=== PATIENT | male | born 1955 | race Caucasian/White ===

== ENCOUNTER 2019-03-23 17:13 | Inpatient (IN) | payer OTHER ==
[~2019-03-23] VITALS: Ht 165.1 cm; Wt 98.5 kg
[2019-03-23 17:13] VITALS: BP 107/63
[~2019-03-23 17:13] MED LIST: PREDNISONE20 MG PO
[2019-03-23 17:41] LABS: BASO % 0.4 % (0.0-1.0); EOS % 0.3 % (1.0-4.0); HEMATOCRIT 55.6 % (42.0-52.0); HEMOGLOBIN 17.9 g/dl (14.0-18.0); MEAN CELL VOLUME 90.8 fl (80.0-94.0); MEAN CORPUSCULAR HGB 29.2 pg (27.0-31.0); MEAN CORPUSCULAR HGB CONC 32.2 g/dl (33.0-37.0); MONO # 0.9 10*3/uL (0.1-1.0); MONO % 11.3 % (3.0-9.0); NEUT % 75.5 % (47.0-73.0); PLATELET COUNT AUTOMATED 217 10*3/uL (130-400); RED BLOOD COUNT 6.12 10*6/uL (4.50-5.90); RED CELL DISTRI WIDTH 18.5 % (0-14.5); WHITE BLOOD COUNT 7.9 10*3/uL (4.8-10.8)
[2019-03-23 17:54] LABS: ACT PARTIAL THROMBO TIME 30.1 SECONDS (20.0-32.1); ALBUMIN 3.1 gm/dl (3.1-4.5); CREATININE 1.85 mg/dL (0.70-1.30); INTERNATIONAL NORM RATIO 1.9 (2.0-3.5); POTASSIUM 4.4 mmol/L (3.5-5.1); TOTAL PROTEIN 6.8 gm/dL (6.4-8.2)
[2019-03-23 18:03] LABS: ABG BASE EXCESS 0.2 mmol/L (-2.0-2.0); ABG HCO3 24.2 mmol/l (22-26); ABG O2 SATURATION 98.6 % (95-97); ARTERIAL BLOOD GAS PCO2 38.5 mmHg (35-45); ARTERIAL BLOOD GAS PH 7.413 (7.35-7.45)
[2019-03-23 18:07] LABS: TROPONIN I 0.607 ng/ml (<0.045)
--- NOTE | 2019-03-23 18:07 | NUR ---
CRITICAL TROP OF 0.607. DOC MADE AWARE.
--- NOTE | 2019-03-23 18:26 | NUR ---
LASIX DOSE NOW ADMINISTERED. PT HAD REQUESTED A BRODERICK CATH INSERTION BUT THE FOESKIN REMNANTS ARE SEVERELY SWOLLEN AND ACTUALLY VERY STIFF AND I AM UNABLE TO OBSERVE THE MEATUS WHATSOEVER. TWO ATTEMPTS TO CATHERIZE PT WERE UNSUCCESSFUL, URINAL AND CALLBELL PROVIDED.
[2019-03-23 18:32] VITALS: BP 120/88
--- NOTE | 2019-03-23 18:56 | NUR ---
17:00 PT ARRIVED TO [facility] VIA AMBULANCE ON PORTABLE CPAP. PT PLACED ON BIPAP OF 20/6 AND 40% SPO2 98%. RR 25-30 WITH VST OF 530 TO 730. PT STATED HE FEELS BETTER. HR 107. ALARMS SET AND FUNCTIONAL WITHIN NORMAL PARAMETERS FOR PATIENT. RESPS REGULAR AND UNLABORED. ABG DRAWN VIA RR WITH ASSISTANCE OF ULTRASOUND.
--- NOTE | 2019-03-23 19:10 | NUR ---
NURSE REPORT GIVEN TO AUDIT DIRECTOR RN
--- NOTE | 2019-03-23 19:35 | NUR ---
A 64, admitted to , under the services of ERIN Meza DO with a diagnosis of CHF. Chief complaint is EDEMA. Patient arrived via stretcher from ER. Monitor applied. Initial assessment completed. Vital signs taken and recorded. ERIN MEZA DO notified of admission to the unit. Orders received. See assessment for past medical history, medications and allergies. Patient and/or family oriented to unit. [facility] visitation policy reviewed. Clothing/patient valuable form completed. RUDDY MONTAÑO
--- NOTE | 2019-03-23 19:44 | NUR ---
PATIENT REFUSING BIPAP. 4L NC INTACT. 95%. RESPIRATIONS DEEP AND STEADY. WILL MONITOR
--- NOTE | 2019-03-23 19:50 | NUR ---
PATIENT STATES HE IS SUPPOSE TO TAKE MEDICATIONS BUT HE DOES NOT. STATES HE HAS NOT FILLED ANY OF HIS CARDIAC MEDICATIONS IN OVER A YEAR. NO MEDICATIONS AVAILABLE TO LOOK AT ON MED CLAIMS HISTORY
[2019-03-23 20:00] VITALS: BP 160/90
--- NOTE | 2019-03-23 20:01 | NUR ---
DR WILDE AWARE OF CRITICAL TROPONIN. ALSO MADE AWARE OF SEEPING WOUNDS, AND PATIENT REFUSING BIPAP.
--- NOTE | 2019-03-23 20:03 | NUR ---
PATIENT MISSED URINATING IN THE URINAL. BED CHANGE AT THIS TIME.
--- NOTE | 2019-03-23 20:43 | NUR ---
DR NEAL'S ANSWERING SERVICE AWARE OF CONSULT
--- NOTE | 2019-03-23 20:48 | NUR ---
DR VILLAVICENCIO CALLED BACK AND AWARE OF CONSULT. MULTIPLE ORDERS TAKEN. STATES HE WILL SEE THE PATIENT TOMORROW
--- NOTE | 2019-03-23 21:18 | NUR ---
MEDICATED WITH PRN TRAZADONE FOR SLEEPLESSNESS AND ATIVAN FOR ANXIOUSNESS AND FINE TREMORS, WILL MONITOR
--- NOTE | 2019-03-23 21:25 | NUR ---
DR WILDE DC'D CONSULT FOR DR NEAL. DR MARTÍNEZ CALLED WITH NEW CONSULT. HE STATES TO ORDER LASIX BID AND DR MAIER WILL SEE HIM IN THE MORNING. STATES PATIENT DOES NOT NEED THE ECHO FOR IN THE MORNING.
--- NOTE | 2019-03-23 21:32 | NUR ---
SPOKE WITH DR WILDE REGARDING MEDICATIONS THAT DR VILLAVICENCIO ORDERED. DR STATED TO GIVE THE HYDROCHLOROTHIAZIDE BUT NOT THE ISORDIL. ALSO STATES TO LET HIM KNOW IF PATIENT DESATS SO HE CAN TRANSFER PATIENT TO THE ICU.
--- NOTE | 2019-03-23 23:55 | NUR ---
DR WILDE MADE AWARE OF CRITICAL TROPONIN. BIPAP INTACT.SETTINGS 18/02. PATIENT TACHYPNEIC, UNABLE TO SPEAK FULL SENTENCES DUE TO DYSPNEA. DR WILDE MADE AWARE AND STATES "I MAY COME UP TO SEE THE PATIENT". BED IN LOW POSITION, CALL LIGHT IN REACH
[2019-03-24] VITALS: BP 106/59
--- NOTE | 2019-03-24 02:33 | NUR ---
PATIENT FOUND SITTING ON TOILET WITH NO MONITOR OR OXYGEN ON. STATES HE DOES NOT REMEMBER WALKING TO THE RESTROOM. OXYGEN 92% ON ROOM AIR. TACHYPNIA AND AUDIBLE WHEEZES NOTED. ASSISTED BACK TO BED VIA WHEELCHAIR. PATIENT UNABLE TO AMBULATE AT THIS TIME. BIPAP AND MONITOR PLACED BACK ON PATIENT. HEART RATE 115 PER MONITOR, 02 95% ON BIPAP. PATIENT STATES HE IS BREATHING BETTER. RESPIRATIONS 18 BEFORE RN LEFT ROOM. BED ALARM, CALL LIGHT IN REACH, BED IN LOW POSITION
--- NOTE | 2019-03-24 03:42 | NUR ---
2 ATTEMPTS MADE TO CATHETERIZE PATIENT. UNABLE TO DO SO DUE TO EDEMA IN PENIS. PATIENT'S FACE IS CLAUDIO IN COLOR. BIPAP REMAINS INTACT. DR WILDE MADE AWARE. STATES HE WILL TRANSFER PATIENT TO THE ICU AND POSSIBLE TRANSFER OUT IN THE AM FOR UROLOGY.
[2019-03-24 04:00] VITALS: BP 122/89
--- NOTE | 2019-03-24 04:15 | NUR ---
PT. RECEIVED FROM . SOB NOTED. HEP LOCK IN AMAURI ASYMPT. LUNGS DIMINISHED WITH RHONCHI AND WHEEZES BILAT, PULSE OX 98% ON 6L NC DURING TRANSFER. BIPAP PLACED ON PT 14, 40%. ABDOMEN FIRM, DISTENDED AND OBESE, GENERALIZED ANASARCA NOTED. ARMS SEEPING. ABD AND LEGS REDDENED AND SEEPY.
--- NOTE | 2019-03-24 04:38 | NUR ---
ATTEMPTS BY 2 RN'S TO INSERT BRODERICK CATHETER AND COUDE CATHETER UNSUCCESSFUL. PT. TOLERATED WELL. PENIS AND SCROTUM EXTREMELY SWOLLEN. MARIANA SUE RN
[2019-03-24 05:32] LABS: ALBUMIN 2.4 gm/dl (3.1-4.5); CREATININE 1.65 mg/dL (0.70-1.30); PHOSPHOROUS 4.1 mg/dL (2.5-4.9); POTASSIUM 4.2 mmol/L (3.5-5.1); TOTAL PROTEIN 5.2 gm/dL (6.4-8.2)
[2019-03-24 05:55] LABS: BASO % 0.2 % (0.0-1.0); EOS % 0.4 % (1.0-4.0); HEMATOCRIT 47.3 % (42.0-52.0); HEMOGLOBIN 15.6 g/dl (14.0-18.0); LYMPH # 0.9 10*3/uL (1.3-4.4); LYMPH % 10.9 % (27.0-41.0); MEAN CELL VOLUME 90.6 fl (80.0-94.0); MEAN CORPUSCULAR HGB 29.9 pg (27.0-31.0); MONO % 12.1 % (3.0-9.0); NEUT # 6.1 10*3/uL (2.3-7.9); PLATELET COUNT AUTOMATED 166 10*3/uL (130-400); RED BLOOD COUNT 5.22 10*6/uL (4.50-5.90); RED CELL DISTRI WIDTH 17.5 % (0-14.5); WHITE BLOOD COUNT 8.1 10*3/uL (4.8-10.8)
--- NOTE | 2019-03-24 07:45 | NUR ---
PATIENT TAKEN OFF OF BI-PAP, PLACED ON 4 L/M NASAL CANNULA.
[2019-03-24 08:00] VITALS: BP 118/92
--- NOTE | 2019-03-24 08:21 | NUR ---
Patient admitted to room 501-1 on 03/23/19 and transferred to [facility]U 03/24/19. When patient is medically stable, if needed, please reorder occupational therapy. Thank you. Marietta Ribeiro OTR/l
--- NOTE | 2019-03-24 08:52 | NUR ---
ÁNGEL ADEN,MILA Najera [id number] Please refer to the physician's history and physical for past medical history, comorbid conditions, and allergies. Diagnosis: CHF Shakir Score: 12,HIGH RISK WOUND DESCRIPTIONS: Wound Number: 1 Location of the wound: right wrist Thickness: Partial Size: 0.5cm x 2.5cm x 0.1cm Tunneling: none Undermining: none Sinus Tract: none Presence of Exudate: Serous Amount: Heavy Color: Red, purple Odor: None Periwound Skin Appearance: Edema, cool Wound edges: approximated Pain (associated with wound): none at time of assessment How does patient state this happened? pt unable to state how this happened Wound Number: 2 Location of the wound: right forearm distal Thickness: Full Size: 1.0cm x 1.2cm x 0.1cm Tunneling: none Undermining: none Sinus Tract: none Presence of Exudate: Serous Amount: Heavy Color: Red, yellow Odor: None Periwound Skin Appearance: Edema, cool Wound edges: approximated Pain (associated with wound): none at time of assessment How does patient state this happened? pt unable to state how this happened Wound Number: 3 Location of the wound: right forearm medial Thickness: Full Size: 1.5cm x 1.5cm x 0.1cm Tunneling: none Undermining: none Sinus Tract: none Presence of Exudate: Serous Amount: Heavy Color: Red, yellow Odor: None Periwound Skin Appearance: Edema, cool Wound edges: approximated Pain (associated with wound): none at time of assessment How does patient state this happened? pt unable to state how this happened Wound Number: 4 Location of the wound: right forearm proximal Thickness: Full Size: 1.2cm x 0.9cm x 0.1cm Tunneling: none Undermining: none Sinus Tract: none Presence of Exudate: Serous Amount: Heavy Color: Red, yellow Odor: None Periwound Skin Appearance: Edema, cool Wound edges: approximated Pain (associated with wound): none at time of assessment How does patient state this happened? pt unable to state how this happened Wound Number: 5 Location of the wound: left wrist Thickness: Full Size: 0.5cm x 0.5cm x 0.1cm Tunneling: none Undermining: none Sinus Tract: none Presence of Exudate: Serous Amount: Heavy Color: Red, yellow Odor: None Periwound Skin Appearance: Edema, cool Wound edges: approximated Pain (associated with wound): none at time of assessment How does patient state this happened? pt unable to state how this happened Wound Number: 6 Location of the wound: left forearm Thickness: Full Size: 2.5cm x 0.5cm x 0.1cm Tunneling: none Undermining: none Sinus Tract: none Presence of Exudate: Serous Amount: Heavy Color: Red, yellow Odor: None Periwound Skin Appearance: Edema, cool Wound edges: approximated Pain (associated with wound): none at time of assessment How does patient state this happened? pt unable to state how this happened Wound Number: 7 Location of the wound: left lower extremity Thickness: Full Size: 2.2cm x 1.2cm x <0.1cm Tunneling: none Undermining: none Sinus Tract: none Presence of Exudate: none Amount: None Color: Brown, yellow Odor: None Periwound Skin Appearance: Erythema, edema Wound edges: approximated Pain (associated with wound): none at time of assessment How does patient state this happened? pt unable to state how this happened Surface the patient is resting on: Isoflex SKIN PREVENTION RECOMMENDATION: 1. Pressure redistribution support surface as appropriate 2. Elevate heels 3. Remove boots/TEDS every shift and reapply 4. Head of bed 30 degrees as tolerated 5. Assess nutrition and hydration 6. Manage moisture 7. Avoid the use of containment devices while in bed 8. Use absorptive products on surfaces limit layers of linens on bed 9. Turn and reposition every 1-2 hours in bed and every 1 hour in chair as tolerated 10. Weight shifts every 15 minutes while up in chair 11. Offloading with pillows or device to keep heels elevated off bed 12. Monitor skin at least every shift 13. Inspect under medical devices twice a day WOUND TREATMENT RECOMMENDATIONS: Venous and arterial studies to BLE's Consult podiatry for BLE's Cleanse right wrist, right forearm proximal, right forearm medial, right forearm distal, left forearm and left wrist with nss and apply therahoney sheet and cover abd pad and lightly wrap with rolled gauze daily and prn for soiling. Heel raiser pro boots to bilateral feet while in bed.
--- NOTE | 2019-03-24 09:12 | NUR ---
PHYSICAL THERAPY Nursing screen received and chart reviwed. Patient admitted to room 501-1 on 03/23/19 and transferred to [facility] 03/24/19. When patient is medically stable, if needed, please reorder physical therapy evaluation. Thank you. Brooke Condon,PT,DPT.
--- NOTE | 2019-03-24 10:29 | NUR ---
Dr. Gutierrez notified of wound care recommendations.
--- NOTE | 2019-03-24 11:00 | NUR ---
Court Registry Officer in to talk to patient. Patient states lives at home with his girlfriend. There are 0 steps in the home. Physician: Dr. Fontenot [facility]: [facility] Home health services: none Patient's level of ADLs: MINIMAL ASSIST Patient has working utilities: yes DME: walker, cane, nebulizer Follow-up physician's appointment after d/c: will be made by the hospitalist nurse director upon discharge Does patient want to access PORTAL?: no Discharge plan discussed with patient. He lives at home with his girlfriend. He is independent in his ADLs and ambulates with either a walker or a cane. Discussed home health care services and he denies any home needs at this time. He would like a hospital bed for comfort with not being able to position himself in a regular bed. Hospitalist nurse director notified. When medically stable he will be discharged to home. His girlfriend will provide transportation on discharge. MUNDO CERON
[2019-03-24 12:00] VITALS: BP 117/81
--- NOTE | 2019-03-24 12:34 | NUR ---
Nutritional Support Services: Pt seemed very confused during interview. When asked what his %PO intake is and his UBW he mumbled continuously and couldn't answer most of my questions. He's also noncompliant with increasing PRO needs to promote wound healing. He won't try HS snack or a protein supplementation. Souleymane Majano Medical Practice Assistant Dietitan
[2019-03-24 16:00] VITALS: BP 122/87
[2019-03-24 20:00] VITALS: BP 117/85
--- NOTE | 2019-03-24 20:00 | NUR ---
PT RESTING IN BED WITH EYES CLOSED, AWAKENS WITH EASE. RESP DYSPNEIC, POX 98% ON 4L NC. NO ACUTE DISTESS NOTED. NO COMPLAINTS VOICED. IV BUMEX INFUSING ORDERED. PT REFUSED BATH.
--- NOTE | 2019-03-24 21:50 | NUR ---
MEDICATED WITH RESTORIL PER PRN ORDER FOR C/O INSOMNIA.
--- NOTE | 2019-03-24 23:20 | NUR ---
Pt placed on BiPap unit 18/02 and an Fio2 of 40%. SpO2 is reading 94%. Alarms are on and audible.
[2019-03-25] VITALS: BP 115/79
[2019-03-25 04:00] VITALS: BP 126/71
[2019-03-25 04:29] LABS: BASO % 0.1 % (0.0-1.0); EOS # 0.1 10*3/uL (0.0-0.4); EOS % 1.5 % (1.0-4.0); HEMATOCRIT 47.3 % (42.0-52.0); HEMOGLOBIN 15.2 g/dl (14.0-18.0); LYMPH # 0.7 10*3/uL (1.3-4.4); LYMPH % 10.7 % (27.0-41.0); MEAN CELL VOLUME 92.4 fl (80.0-94.0); MEAN CORPUSCULAR HGB 29.7 pg (27.0-31.0); MEAN CORPUSCULAR HGB CONC 32.1 g/dl (33.0-37.0); MEAN PLATELET VOLUME 9.9 fl (9.6-12.3); MONO # 0.9 10*3/uL (0.1-1.0); MONO % 12.8 % (3.0-9.0); NEUT % 74.8 % (47.0-73.0); PLATELET COUNT AUTOMATED 154 10*3/uL (130-400); RED BLOOD COUNT 5.12 10*6/uL (4.50-5.90); RED CELL DISTRI WIDTH 16.9 % (0-14.5); WHITE BLOOD COUNT 6.7 10*3/uL (4.8-10.8)
[2019-03-25 04:40] LABS: INTERNATIONAL NORM RATIO 1.6 (2.0-3.5)
[2019-03-25 04:58] LABS: CREATININE 1.71 mg/dL (0.70-1.30); POTASSIUM 3.5 mmol/L (3.5-5.1)
--- NOTE | 2019-03-25 07:17 | NUR ---
pt not on bipap at this time
[2019-03-25 07:51] VITALS: BP 97/67
--- NOTE | 2019-03-25 08:24 | NUR ---
PT NOT ON BIPAP AT THIS TIME
--- NOTE | 2019-03-25 11:00 | NUR ---
Gyro Compass Tester in to see patient. No new needs or request at this time. He denies any home needs. When medically stable he will be discharged to home.
--- NOTE | 2019-03-25 11:33 | NUR ---
PODIATRY IN TO SEE PT.
--- NOTE | 2019-03-25 11:52 | NUR ---
PT NOT ON BIPAP AT THIS TIME
[2019-03-25 12:00] VITALS: BP 104/74
--- NOTE | 2019-03-25 13:20 | NUR ---
HEEL PROTECTORS PLACED ON BILATERAL FEET.
--- NOTE | 2019-03-25 14:24 | NUR ---
PT REFUSED TUBI ADDICTIONS THERAPIST AT THIS TIME STATES HIS LEGS ARE TO PAINFUL TO TOUCH. BILATERAL LEGS REMAINS SWOLLEN AND REDDENED.
--- NOTE | 2019-03-25 15:34 | NUR ---
Faxed hospital bed prescription and clinical to [facility]. Awaiting response.
[2019-03-25 16:00] VITALS: BP 98/57
[2019-03-25 20:00] VITALS: BP 103/76
[2019-03-26] VITALS (7 sets, daily range): BP systolic 92–115; BP diastolic 56–77
--- NOTE | 2019-03-26 01:10 | NUR ---
PATIENT DRESSING TO BILATERAL ARMS CHANGED DUE TO SEEPING. PATIENT ALSO BATHED AT THIS TIME. BED CHANGED COMPLETED WELL. TOLERATED WELL. PATIENT REMAINED ON BIPAP THROUGHOUT.
[2019-03-26 05:13] LABS: BASO % 0.2 % (0.0-1.0); EOS % 0.6 % (1.0-4.0); HEMATOCRIT 46.8 % (42.0-52.0); LYMPH # 0.6 10*3/uL (1.3-4.4); LYMPH % 9.2 % (27.0-41.0); MEAN CELL VOLUME 91.8 fl (80.0-94.0); MEAN CORPUSCULAR HGB 29.4 pg (27.0-31.0); MEAN CORPUSCULAR HGB CONC 32.1 g/dl (33.0-37.0); MEAN PLATELET VOLUME 10.3 fl (9.6-12.3); MONO # 0.8 10*3/uL (0.1-1.0); MONO % 11.8 % (3.0-9.0); NEUT # 5.2 10*3/uL (2.3-7.9); NEUT % 77.9 % (47.0-73.0); PLATELET COUNT AUTOMATED 138 10*3/uL (130-400); RED CELL DISTRI WIDTH 16.7 % (0-14.5); WHITE BLOOD COUNT 6.6 10*3/uL (4.8-10.8)
[2019-03-26 05:43] LABS: POTASSIUM 2.8 mmol/L (3.5-5.1)
[2019-03-26 05:44] LABS: CREATININE 1.72 mg/dL (0.70-1.30)
--- NOTE | 2019-03-26 11:30 | NUR ---
[facility] INSERTED BY .
--- NOTE | 2019-03-26 19:32 | NUR ---
[place] CATHETER REMAINS IN PLACE. CATH SECURE LT LEG. PT REMAINS ON BUMEX GTT AND DOBUTREX GTT WELL. [facility] RT IJ IN PLACE.
--- NOTE | 2019-03-26 20:49 | NUR ---
[place] CATHETER LEAKED. COMPLETE BATH AND BED LINEN CHANGE DONE.
--- NOTE | 2019-03-26 21:40 | NUR ---
DR WILDE NOTIFIED OF K+ RESULTS.
--- NOTE | 2019-03-26 22:02 | NUR ---
PT CONTINUES TO VOID Q15 MINUTES WITH STAFF HOLDING THE URINAL. CONTINUED TO EDUCATE ON FLUID RESTRICTION.
[2019-03-27] VITALS (12 sets, daily range): BP systolic 90–101; BP diastolic 43–66
--- NOTE | 2019-03-27 00:16 | NUR ---
PT WEARING BIPAP ORDERED. CONTINUING TO VOID FREQUENTLY.
--- NOTE | 2019-03-27 00:20 | NUR ---
PT HAD REQUESTED RESTORIL AT 2114. THIS HAS NOT BEEN EFFECTIVE.
[2019-03-27 06:20] LABS: BASO % 0.2 % (0.0-1.0); EOS % 0.7 % (1.0-4.0); HEMATOCRIT 42.1 % (42.0-52.0); HEMOGLOBIN 13.8 g/dl (14.0-18.0); LYMPH # 0.8 10*3/uL (1.3-4.4); LYMPH % 12.7 % (27.0-41.0); MEAN CELL VOLUME 89.4 fl (80.0-94.0); MEAN CORPUSCULAR HGB 29.3 pg (27.0-31.0); MEAN CORPUSCULAR HGB CONC 32.8 g/dl (33.0-37.0); MONO # 0.9 10*3/uL (0.1-1.0); MONO % 14.4 % (3.0-9.0); NEUT # 4.4 10*3/uL (2.3-7.9); NEUT % 71.7 % (47.0-73.0); PLATELET COUNT AUTOMATED 115 10*3/uL (130-400); RED BLOOD COUNT 4.71 10*6/uL (4.50-5.90); RED CELL DISTRI WIDTH 16.7 % (0-14.5); WHITE BLOOD COUNT 6.1 10*3/uL (4.8-10.8)
[2019-03-27 06:28] LABS: BUN 19 mg/dl (7-24); CHLORIDE 91 mmol/L (98-107); CREATININE 1.42 mg/dL (0.70-1.30); POTASSIUM 3.1 mmol/L (3.5-5.1); SODIUM 139 mmol/L (136-145)
--- NOTE | 2019-03-27 06:37 | NUR ---
DR MARTÍNEZ VISITS. CONDITION DISCUSSED. PT FLUID RESTRICTION INCREASED PER PT FREQUENT REQUESTS AND UNDER ADVISEMENT OF DR MARTÍNEZ.
[2019-03-27 06:47] LABS: INTERNATIONAL NORM RATIO 1.4 (2.0-3.5)
[2019-03-27 09:57] LABS: ABG BASE EXCESS 22.1 mmol/L (-2.0-2.0); ABG HCO3 50.3 mmol/l (22-26); ABG O2 SATURATION 96.5 % (95-97); ARTERIAL BLOOD GAS PCO2 61.5 mmHg (35-45); ARTERIAL BLOOD GAS PH 7.521 (7.35-7.45); ARTERIAL BLOOD GAS PO2 73.3 mmHg (80-90)
--- NOTE | 2019-03-27 22:12 | NUR ---
BED EXIT ALARM RINGS. PT TRYING TO GET OUT OF BED. "I GOTTA PISS!" HE YELLS TO US. REINFORCED USAGE OF CALL LIGHT AND PT SAYS "OH, I DIDN'T WANNA WAKE YOU UP. I THOUGHT EVERYONE WAS SLEEPING.". ASSISTED TO VOID. PT AOX3. RESTORIL GIVEN EARLIER HAD BEEN EFFECTIVE PT WAS DOZING.
--- NOTE | 2019-03-27 23:37 | NUR ---
Pt has refused multiple attempts to use NIV this evening. Pt remains on 2L nasal cannula in no distress. SPO2: 96%
--- NOTE | 2019-03-27 23:48 | NUR ---
Pt has changed his mind about his refusal to wear NIV. Patient has now been placed on NIV for the evening.
--- NOTE | 2019-03-27 23:56 | NUR ---
AT FIRST, PT REFUSED BIPAP BUT THEN CONSENTED TO "WHERE IT FOR AWHILE" AT 2350. APPEARS TO BE TOLERATING IT WELL.
[2019-03-28] VITALS (10 sets, daily range): BP systolic 78–100; BP diastolic 46–66
--- NOTE | 2019-03-28 01:06 | NUR ---
PT INCONTINENT. COMPLETE BATH AND BED LINEN CHANGE DONE.
--- NOTE | 2019-03-28 01:56 | NUR ---
PT REMOVED BIPAP MASK LONGTERM AND WAS EATING LOLLIPOP. BIPAP MASK REMOVED AND O2 NC PLACED.
--- NOTE | 2019-03-28 02:10 | NUR ---
BACK ON BIPAP.
--- NOTE | 2019-03-28 03:04 | NUR ---
OFF BIPAP AGAIN. STATES HE WILL NOT WEAR IT ANYMORE TONIGHT. RESP DEPT PLACES PT BACK ON NC2.
--- NOTE | 2019-03-28 03:05 | NUR ---
Pt tore off NIV mask and stated he doesn't want to wear it for the rest of the night. Placed patient back on 2L nasal cannula. Patient is not in distress. SPO2: 96%
[2019-03-28 06:03] LABS: BASO % 0.2 % (0.0-1.0); EOS # 0.1 10*3/uL (0.0-0.4); HEMATOCRIT 42.9 % (42.0-52.0); HEMOGLOBIN 14.2 g/dl (14.0-18.0); LYMPH % 15.7 % (27.0-41.0); MEAN CELL VOLUME 88.3 fl (80.0-94.0); MEAN CORPUSCULAR HGB 29.2 pg (27.0-31.0); MEAN CORPUSCULAR HGB CONC 33.1 g/dl (33.0-37.0); MEAN PLATELET VOLUME 10.5 fl (9.6-12.3); MONO % 16.4 % (3.0-9.0); NEUT % 66.5 % (47.0-73.0); PLATELET COUNT AUTOMATED 109 10*3/uL (130-400); RED BLOOD COUNT 4.86 10*6/uL (4.50-5.90); RED CELL DISTRI WIDTH 16.3 % (0-14.5)
[2019-03-28 06:11] LABS: CREATININE 1.54 mg/dL (0.70-1.30)
--- NOTE | 2019-03-28 06:36 | NUR ---
PODIATRY REMOVED TUBIE SPRAY PILOT FROM LEGS.
--- NOTE | 2019-03-28 16:05 | NUR ---
DR OROZCO NOTIFIED OF PT'S SBP IN THE 80'S SINCE DOBUTAMINE GTT COMPLETE AT 1400. ORDER TO HOLD COREG FOR SBP <100.
--- NOTE | 2019-03-28 20:00 | NUR ---
ASSUMED CARE OF PATIENT. PATIENT RESTING IN BED. NO S/S OF DISTRESS. CALL LIGHT IN REACH. PATIENT EDUCATED ON CONTINUED FOLLOW UP CARE POST DISCHARGE. ASSESSMENT COMPLETED. I/E WHEEZES T/O LUNGS. DENIES ANY DISCOMFORTS.
--- NOTE | 2019-03-28 22:48 | NUR ---
PLACED PATIENT ON BIPAP
[2019-03-29] VITALS (8 sets, daily range): BP systolic 79–111; BP diastolic 45–84
--- NOTE | 2019-03-29 00:20 | NUR ---
PATIENT OFF BIPAP. PLACED ON 2LNC. WILL REATTEMPT BIPAP LATER. PATIENT RESTING COMFORTABLY
--- NOTE | 2019-03-29 02:44 | NUR ---
PATIENT RESTING COMFORTABLY IN BED. NO S/S OF DISTRESS. CALL LIGHT WITHIN REACH.
--- NOTE | 2019-03-29 03:50 | NUR ---
PATIENT REFUSING TO GO ON BIPAP AT THIS TIME. REMAINS ON 2L NASAL CANNULA.
[2019-03-29 05:23] LABS: ALBUMIN 2.5 gm/dl (3.1-4.5); CREATININE 1.62 mg/dL (0.70-1.30)
[2019-03-29 06:11] LABS: POTASSIUM 3.1 mmol/L (3.5-5.1)
--- NOTE | 2019-03-29 07:02 | NUR ---
PT NOT ON BIPAP AT THIS TIME.SPO2 96% HR 76 RR 23
--- NOTE | 2019-03-29 11:24 | NUR ---
DR OROZCO IN TO SEE PT.
--- NOTE | 2019-03-29 11:28 | NUR ---
PT NOT ON BIPAP AT THIS TIME, SPO2 97 ON 2LNC, RR 16,HR 68
--- NOTE | 2019-03-29 15:09 | NUR ---
PT TRANSFERED TO 401 VIA BED AT THIS TIME. REPORT GIVEN TO IRAIDA RN.
--- NOTE | 2019-03-29 15:39 | NUR ---
PATIENT RESTING QUIETLY IN BED. NO DISTRESS NOTED. BREATHING TREATMENT GIVEN AT THIS TIME. K-RUN INFUSING WITHOUT ANY DIFFICULTY. WILL CONTINUE TO MONITOR.
--- NOTE | 2019-03-29 17:16 | NUR ---
CALLED REGARDING RECENT K LEVEL. NO ANSWER AT THIS TIME. LEFT MESSAGE. AWAITING RETURN PHONE CALL.
--- NOTE | 2019-03-29 17:31 | NUR ---
NOTIFIED REGARDING MOST RECENT K LEVEL.
--- NOTE | 2019-03-29 17:53 | NUR ---
FAMILY IN TO VISIT PATIENT.
--- NOTE | 2019-03-29 20:30 | NUR ---
CALLED DR MOMIN WITH AMMONIA RESULTS. NEW ORDERS RECEIVED.
[2019-03-29 20:55] LABS: ABG BASE EXCESS 16.9 mmol/L (-2.0-2.0); ABG HCO3 43.6 mmol/l (22-26); ABG O2 SATURATION 96.8 % (95-97); ARTERIAL BLOOD GAS PCO2 56.6 mmHg (35-45); ARTERIAL BLOOD GAS PH 7.499 (7.35-7.45); ARTERIAL BLOOD GAS PO2 87.3 mmHg (80-90)
--- NOTE | 2019-03-29 22:44 | NUR ---
PATIENT RECEIVED TYLENOL FOR PAIN IN LEGS RATED 9/10. ALSO RECEIVED RESTORIL FOR SLEEP AID.
--- NOTE | 2019-03-29 22:51 | NUR ---
Patient refuses NIV at this time for the evening.
--- NOTE | 2019-03-29 23:39 | NUR ---
24 HR chart check completed.
[2019-03-29 23:55] LABS: BILIRUBIN NEGATIVE (NEGATIVE); BLOOD NEGATIVE (NEGATIVE); CLARITY CLEAR (CLEAR); COLOR YELLOW (YELLOW); GLUCOSE NEGATIVE (NEGATIVE); KETONE NEGATIVE (NEGATIVE); LEUKO ESTERASE 1+ (NEGATIVE); NITRITE NEGATIVE (NEGATIVE); PH 8.5 (5.0-9.0)
[2019-03-30] VITALS: BP 100/66
[2019-03-30 00:16] LABS: BACTERIA 1+
--- NOTE | 2019-03-30 04:22 | NUR ---
PATIENT HAD BEDBATH AND DRESSING CHANGED DUE TO URINATING IN HIS BED. PATIENT IS ALSO GETTING AGITATED ABOUT NOT BEING ABLE TO SMOKE DESPITE HAVING A NICOTINE PATCH. THIS NURSE ATTEMPTED TO REORIENT PATIENT TO HOSPITAL. PATIENT NOW RESTING IN BED. CALL LIGHT IN REACH. STILL CONFUSED. RESP EASY.
--- NOTE | 2019-03-30 05:08 | NUR ---
PATIENT SLEEPING. HOLDING DIAMOX UNTIL AWAKE ENOUGH TO TAKE IT.
--- NOTE | 2019-03-30 06:39 | NUR ---
NOTIFIED OF CRITICAL AMMONIA LEVEL 58, DOWN FROM 87. NO NEW ORDERS RECEIVED.
[2019-03-30 08:00] VITALS: BP 80/64
--- NOTE | 2019-03-30 08:43 | NUR ---
Listless, states is nauseated. no edema noted, skin dry . dressing present to both arms and tubi-label coder to BLE.
--- NOTE | 2019-03-30 09:51 | NUR ---
Recommend follow up for wound care in outpatient setting patient refused at this time.
--- NOTE | 2019-03-30 10:15 | NUR ---
Breakfast ordered. Pt. requests GF be called . done.
--- NOTE | 2019-03-30 11:00 | NUR ---
Tactical Intelligence Officer in to see patient. No new needs or request at this time. Discussed short term SNF and home health care services and he would like CM to speak to his girlfriend because he doesn't understand. Discharge plan undecided at this time. Hospitalist nurse director notified of need for new PT/OT orders.
[2019-03-30 11:23] LABS: CREATININE 1.7 mg/dL (0.70-1.30)
[2019-03-30 11:25] LABS: POTASSIUM 3.2 mmol/L (3.5-5.1)
[2019-03-30 12:00] VITALS: BP 102/67
--- NOTE | 2019-03-30 12:13 | NUR ---
Spoke to patient's girlfriend, Bridgette, at [phone]. She states they live at [facility] and are all on one floor. She states she has [facility] coming in to help her. She is agreeable to home health care. When provided with a list of agencies she chose [facility]. Explained to Bridgette let's see how he does with therapy. She would like for him to have a rollator. He has been using her nebulizer. Discharge plan undecided at this time.
--- NOTE | 2019-03-30 12:43 | NUR ---
Inc moderste amt urine, urine is very odiferous , breif changed. Discussed re-hab placement w/ pt. as well as life vest placement.
--- NOTE | 2019-03-30 14:55 | NUR ---
PHYSICAL THERAPY Physical therapy evaluation attempted. Patient lethargic and unable to participate. Will try PT evaluation at a later date. Thank you. Brooke Condon,PT,DPT
--- NOTE | 2019-03-30 14:56 | NUR ---
Occupational therapy orders received and chart reviewed. Patient is not appropriate at this time secondary to being lethargic and unable to arouse. OTR will follow up as appropriate for completion of OT eval and POC. Thank you for the referral. Britt Ramos OTR/L
--- NOTE | 2019-03-30 15:57 | NUR ---
Dr. King in today , No new orders. Incontinent of bowel and bladder. angie care given and complete linen change. Repositioned.
[2019-03-30 16:00] VITALS: BP 103/76
--- NOTE | 2019-03-30 16:02 | NUR ---
Physicians are requesting Pt and OT . however per note they do not feel he is appropriate for therapy. Pt. is currently awake , alert and assists with care.
--- NOTE | 2019-03-30 18:39 | NUR ---
Requested antacid. Dr. Lynch was notified and tums were given, shortly thereafter pt. had emesis of undigested food. Zofran was given.
--- NOTE | 2019-03-30 19:31 | NUR ---
PATIENT RESTING IN BED WITH NO NEEDS MADE. ALERT TO SELF. REORIENTED TO TIME AND PLACE. REFUSING BIPAP AT THIS TIME. BED ALARM ON, BED IN LOWEST POSITION, CALL LIGHT IN REACH
[2019-03-30 20:00] VITALS: BP 99/61
--- NOTE | 2019-03-30 23:55 | NUR ---
MEDICATED WITH PRN RESTORIL FOR C/O SLEEPLESSNESS. REFUSING BIPAP AT THIS TIME. EDUCATED ON THE IMPORTANCE OF WEARING IN. VERBALIZED UNDERSTANDING
[2019-03-31] VITALS: BP 92/69
--- NOTE | 2019-03-31 01:32 | NUR ---
PATIENT RESTING WITH EYES CLOSED. NO S/S OF DISTRESS. RESPIRATIONS REGULAR ON NASAL CANNULA. MEDICATION SEEMS EFFECTIVE
--- NOTE | 2019-03-31 05:53 | NUR ---
PATIENT REFUSING BIPAP
--- NOTE | 2019-03-31 06:27 | NUR ---
ÁNGEL ADEN,MILA Najera [id number] Please refer to the physician's history and physical for past medical history, comorbid conditions, and allergies. Diagnosis: CHF Shakir Score: 13,MODERATE RISK WOUND DESCRIPTIONS: Wound Number: 1 right wrist no open areas at time of assessment. No drainage at time of assessment. Wound Number: 2 Location of the wound: right forearm distal Thickness: Full Size: 0.6cm x 1.0cm x 0.1cm Tunneling: none Undermining: none Sinus Tract: none Presence of Exudate: none Amount: none Color: Red, yellow Odor: None Periwound Skin Appearance: Ecchymotic Wound edges: approximated Pain (associated with wound): none at time of assessment How does patient state this happened? pt unable to state how this happened Wound Number: 3 Location of the wound: right forearm medial Thickness: Full Size: 0.9cm x 1.2cm x 0.1cm Tunneling: none Undermining: none Sinus Tract: none Presence of Exudate: none Amount: none Color: Red, yellow Odor: None Periwound Skin Appearance: Ecchymotic Wound edges: approximated Pain (associated with wound): none at time of assessment How does patient state this happened? pt unable to state how this happened Wound Number: 4 Location of the wound: right forearm proximal Thickness: Full Size: 0.7cm x 0.8cm x 0.1cm Tunneling: none Undermining: none Sinus Tract: none Presence of Exudate: none Amount: none Color: Red, yellow Odor: None Periwound Skin Appearance: Ecchymotic Wound edges: approximated Pain (associated with wound): none at time of assessment How does patient state this happened? pt unable to state how this happened Wound Number: 5 Location of the wound: left wrist Thickness: Full Size: 0.6cm x 0.4cm x 0.1cm Tunneling: none Undermining: none Sinus Tract: none Presence of Exudate: none Amount: none Color: Red, yellow Odor: None Periwound Skin Appearance: Ecchymotic Wound edges: approximated Pain (associated with wound): none at time of assessment How does patient state this happened? pt unable to state how this happened Wound Number: 6 Location of the wound: left forearm Thickness: Full Size: 1.5cm x 0.6cm x 0.1cm Tunneling: none Undermining: none Sinus Tract: none Presence of Exudate: none Amount: none Color: Red, yellow Odor: None Periwound Skin Appearance: Ecchymotic Wound edges: approximated Pain (associated with wound): none at time of assessment How does patient state this happened? pt unable to state how this happened Wound Number: 7 Location of the wound: left lower extremity Thickness: Full Size: 2.2cm x 1.2cm x <0.1cm Tunneling: none Undermining: none Sinus Tract: none Presence of Exudate: none Amount: None Color: Brown, yellow Odor: None Periwound Skin Appearance: Ecchymotic Wound edges: approximated Pain (associated with wound): none at time of assessment How does patient state this happened? pt unable to state how this happened Wound Number: 8 Location of the wound: right medial elbow Thickness: Full Size: 1.0cm x 0.4cm x <0.1cm Tunneling: none Undermining: none Sinus Tract: none Presence of Exudate: none Amount: None Color: red, yellow Odor: None Periwound Skin Appearance: Ecchymotic Wound edges: approximated Pain (associated with wound): none at time of assessment How does patient state this happened? pt unable to state how this happened Wound Number: 9 Location of the wound: right lateral elbow Thickness: Full Size: 1.2cm x 0.6cm x <0.1cm Tunneling: none Undermining: none Sinus Tract: none Presence of Exudate: none Amount: None Color: Brown, yellow Odor: None Periwound Skin Appearance: Erythema, edema Wound edges: approximated Pain (associated with wound): none at time of assessment How does patient state this happened? pt unable to state how this happened Surface the patient is resting on: Isoflex SKIN PREVENTION RECOMMENDATION: 1. Pressure redistribution support surface as appropriate 2. Elevate heels 3. Remove boots/TEDS every shift and reapply 4. Head of bed 30 degrees as tolerated 5. Assess nutrition and hydration 6. Manage moisture 7. Avoid the use of containment devices while in bed 8. Use absorptive products on surfaces limit layers of linens on bed 9. Turn and reposition every 1-2 hours in bed and every 1 hour in chair as tolerated 10. Weight shifts every 15 minutes while up in chair 11. Offloading with pillows or device to keep heels elevated off bed 12. Monitor skin at least every shift 13. Inspect under medical devices twice a day WOUND TREATMENT RECOMMENDATIONS: Clarify cleanse right forearm proximal, right forearm medial, right forearm distal, left forarm, left wrist, right lateral elbow and right medial elbow with nss and apply sureprep around the wound therahoney to wound bed and cover with abd pad and lightly wrap with rolled gauze daily and prn for soiling.
[2019-03-31 07:16] LABS: BASO % 0.3 % (0.0-1.0); EOS # 0.1 10*3/uL (0.0-0.4); EOS % 1.2 % (1.0-4.0); HEMATOCRIT 46.5 % (42.0-52.0); HEMOGLOBIN 15.1 g/dl (14.0-18.0); LYMPH # 1.1 10*3/uL (1.3-4.4); LYMPH % 16.1 % (27.0-41.0); MEAN CELL VOLUME 90.6 fl (80.0-94.0); MEAN CORPUSCULAR HGB 29.4 pg (27.0-31.0); MEAN CORPUSCULAR HGB CONC 32.5 g/dl (33.0-37.0); MEAN PLATELET VOLUME 11.4 fl (9.6-12.3); MONO # 1.1 10*3/uL (0.1-1.0); MONO % 15.4 % (3.0-9.0); NEUT # 4.6 10*3/uL (2.3-7.9); NEUT % 66.7 % (47.0-73.0); PLATELET COUNT AUTOMATED 111 10*3/uL (130-400); RED BLOOD COUNT 5.13 10*6/uL (4.50-5.90); RED CELL DISTRI WIDTH 16.2 % (0-14.5); WHITE BLOOD COUNT 6.9 10*3/uL (4.8-10.8)
[2019-03-31 07:52] LABS: ALBUMIN 2.6 gm/dl (3.1-4.5); CREATININE 1.55 mg/dL (0.70-1.30); PHOSPHOROUS 2.8 mg/dL (2.5-4.9); POTASSIUM 3.8 mmol/L (3.5-5.1)
[2019-03-31 08:00] VITALS: BP 107/54
--- NOTE | 2019-03-31 08:16 | NUR ---
PT NO ON BIPAP AT THIS TIME
--- NOTE | 2019-03-31 08:51 | NUR ---
Listless, activity encouraged.
--- NOTE | 2019-03-31 09:59 | NUR ---
Dr. Lynch notified of wound care recommendations.
--- NOTE | 2019-03-31 09:59 | NUR ---
Dr. Lynch notified of wound care recommendations.
--- NOTE | 2019-03-31 10:00 | NUR ---
PHYSICAL THERAPY Physical therapy evaluation complete, 4E. Full evaluation/details to follow. Moderate complexity PT evaluation per chart review and evaluation (24936). PT to progress transfers, gait, LE ther ex per POC. Recommend SNF at discharge. Thank you. Brooke Condon,PT,DPT.
--- NOTE | 2019-03-31 10:24 | NUR ---
Spoke to girlfriend, Bridgette, who states patient and herself would like patient to go to [facility]. They spoke to the physician who states he will need to be in [facility] for approximately 3 months for rehab. [place]. cyber intel planner notified.
--- NOTE | 2019-03-31 10:31 | NUR ---
PT/OT in . Pt. is participating today.
--- NOTE | 2019-03-31 10:46 | NUR ---
Patient requesting a referral to [facility] for short term therapy. Contacted facility and faxed referral. Requires PT and OT evals when patient is able to participate and requires precert.
--- NOTE | 2019-03-31 11:53 | NUR ---
Occupational Therapy evaluation completed on the 4th floor with full eval to follow. moderate complexity level. Precautions: O2, fall risk, alarm. Patient seated in chair at end of session with call ebar in reach and chair alarm on. Recommend SNF. Work on safety with transfers, endurance, and ADLs. Thank you for this referral, Cesilia Alfredo OTR/L
[2019-03-31 12:00] VITALS: BP 104/56
--- NOTE | 2019-03-31 12:00 | NUR ---
Faxed therapy evals and bipap information to [facility], asked to start precert. waiting for auth.
--- NOTE | 2019-03-31 13:55 | NUR ---
OT NOTE Pt was seen this P.M. 1:1 for 15 minute OT session. Upon arrival pt was sitting upright in the recliner. Pt identified by name and and had no complaints at this time. Pt presented to therapy with continuous 2L-O2 via NC which he remained on throughout entire session. Pt completed multiple sit to stand transfers from chair level with Thomas and use of w/w for UE support. Stand pivot completed from chair to the EOB with Thomas and use of w/w. Pt then transferred sit to supine with CGA. There he was left with call light in hand, tray table in place, and bed alarm activated for safety. Continue with rec D/C plan to SNF. MARINA Tipton/Melvin
--- NOTE | 2019-03-31 14:09 | NUR ---
PHYSICAL THERAPY Patient presented to therapy in sititng position in bedside chair on 2 liter of spO2 via nasal canula. Patient was identified by name and on wristban Patient gives informed consent for treatment. Patient has chair alarm attached. Patient transferred sit to stand with MIN A X 1. Patient stand -pivot transfer to EOB with CGA X 1. Patient transferred sit to supine with SBA to CGA X 1. Patient was left in supine in bed with head of bed elevated, call light within reach, and bed alarm activated. Patient was 1:1 with this OUTREACH LIAISON for 12 minutes total. CHARU DUCKWORTH OUTREACH LIAISON
--- NOTE | 2019-03-31 15:39 | NUR ---
PT NOT ON BIPAP AT THIS TIME
--- NOTE | 2019-03-31 15:52 | NUR ---
PHYSICAL THERAPY Nursing screen received and chart reviewed. PT order received. Evaluation completed 03/31/19. Thank you. Brooke Condon,PT,DPT.
[2019-03-31 16:00] VITALS: BP 104/75
--- NOTE | 2019-03-31 19:17 | NUR ---
patient resting in bed with no s/s of distress. denies needs at this time. bed in lowest position, call light in reach, bed alarm on
[2019-03-31 20:00] VITALS: BP 101/71
--- NOTE | 2019-03-31 20:12 | NUR ---
DR HUGGINS AWARE OF PATIENT C/O PAIN
--- NOTE | 2019-03-31 20:27 | NUR ---
DR CUNNINGHAM AWARE OF PATIENT HAVING AN ALLERGY TO CODEINE AND NOT BEING ABLE TO TAKE NORCO OR VICODIN
--- NOTE | 2019-03-31 21:19 | NUR ---
ONE TIME ULTRAM GIVEN PER ORDER FOR PAIN IN LEGS RATED 7/10 ON A 0/10 PAIN SCALE
--- NOTE | 2019-03-31 21:30 | NUR ---
PATIENT REFUSING BIPAP AT THIS TIME
--- NOTE | 2019-03-31 23:00 | NUR ---
Pt is refusing his BiPap tonight. Pt is on 2L NC. SpO2 98%
[2019-04-01 01:22] VITALS: BP 93/65
--- NOTE | 2019-04-01 01:25 | NUR ---
24 HR chart check completed.
--- NOTE | 2019-04-01 01:25 | NUR ---
MICHAEL CALLED THIS RN AT THIS TIME THAT WHEN SHE OBTAINED PATIENT'S VITALS AT MIDNIGHT THAT HIS PULSE OX WAS 88. UPON ENTERING ROOM, PATIENT NASAL CANNULA WAS OFF OF PATIENT'S FACE, AND HIS PULSE OX WAS 74% ON ROOM AIR. 3 LITERS APPLIED VIA NASAL CANNULA. PATIENT'S PULSE OX UP TO 97%. CONTINUOUS PULSE OX APPLIED. PATIENT ALERT AND ORIENTED. DENIES ANY DISTRESS.
--- NOTE | 2019-04-01 06:20 | NUR ---
DR MCCLAIN AWARE OF CRITICAL AMMONIA LEVEL
[2019-04-01 06:21] LABS: CREATININE 1.82 mg/dL (0.70-1.30)
[2019-04-01 06:27] LABS: POTASSIUM 4.8 mmol/L (3.5-5.1)
--- NOTE | 2019-04-01 06:50 | NUR ---
DR MARTÍNEZ AT BEDSIDE. ORDER FOR CHEST XRAY AND CMP
[2019-04-01 07:17] LABS: ALBUMIN 2.8 gm/dl (3.1-4.5); CREATININE 1.87 mg/dL (0.70-1.30); POTASSIUM 4.8 mmol/L (3.5-5.1); TOTAL PROTEIN 6.4 gm/dL (6.4-8.2)
[2019-04-01 08:00] VITALS: BP 100/62
--- NOTE | 2019-04-01 08:16 | NUR ---
PHYSICAL THERAPY IN TO SEE PATIENT.
--- NOTE | 2019-04-01 08:20 | NUR ---
PHYSICAL THERAPY Patient seen this am 1:1 for therapy visit and was supine in bed upon therapist arrival. Patient identified by name / and presented with continuos O2-2L via NC. Patient c/o B LE pain / stiffness, but was unable to rate pain on 0-10 scale. Patient needed multiple v/c's to complete all therapy task this session secondary to several bouts of being stubborn. Patient educated on benefits of therapy and encouraged to continue while transfering supine to sit EOB and sit to stand MIN A. Patient able to take 4-5 forward / side steps to bedside recliner chair with use of wh walker support, Min A and v/c for safe step sequence. Patient also completed several sit to stand transfers from low chair surface, MOD A and tolerated 45 - 60 seconds static stand each trial prior to quick onset of fatigue. Patient remained in bedside chair with call light, tray table, telephone and body alarm for safety awaiting breakfast. Will continue per POC as tolerated, total treatment time 14 minutes. Jarod Reilly, LEAD JAVASCRIPT DEVELOPER
--- NOTE | 2019-04-01 08:30 | NUR ---
OT NOTE Pt was seen this A.M. 1:1 for 15 minute OT session. Upon arrival pt was supine in bed. Pt identified by name and and had complaints of "10/10 BLE pain." Pt presented to therapy with continuous 2L-O2 via NC which he remained on throughout entire session. Pt transferred supine to sit EOB with Thomas and use of bed rail for UE support. Pt completed sit to stand from bed level with Thomas and use of w/w for UE support. Stand pivot completed from EOB to the recliner with Thomas and use of w/w. Pt became aggitated when requested to complete task resulting in impulsive behaviors with the walker increasing risk of falls. Challenged pt's static standing tolerance needed for increased I in self care tasks and functional transfers. pt was able to tolerate aprox 50 seconds, 45 seconds, and 62 seconds before sitting due to fatigue and BLE pain. With each attempt pt's SpO2 was 94-97% at rest, would drop to 83-85% upon inital rise, and would recover to 95% with verbal prompts for breathing techniques within seconds. Attempted to complete other tasks at this time and pt declined. Throughout entire session pt required constant verbal prompts for encouragement and participation. Pt was left sitting upright in the recliner with call light in hand, tray table in place, and body alarm activated for safety. Continue with rec D/C plan to SNF. MALIK Tipton
--- NOTE | 2019-04-01 09:00 | NUR ---
Sitting up in the bedside chair without distress noted. No new needs or request at this time. When medically stable and precert is received he will be discharged to [facility]. data recovery planner following.
--- NOTE | 2019-04-01 09:10 | NUR ---
MESSAGE LEFT FOR ANTHONY SALVADOR REGARDING LIFE VEST ORDER. NO ANSWER. AWAITING RETURN PHONE CALL.
--- NOTE | 2019-04-01 10:01 | NUR ---
PATIENT UP IN RECLINER CHAIR. CONT. PULSE OX MAINTAINED. PULSE OX 97-99% VIA 3LNC. WILL CONTINUE TO MONITOR. PT ALERT AND ORIENTED. SPEECH IS MUMBLED AT TIMES. PT DENIES ANY PAIN/DISCOMFORT. NO VOICED COMPLAINTS. VSS. CALL LIGHT WITHIN REACH.
--- NOTE | 2019-04-01 11:03 | NUR ---
REP FROM [employer] CALLED IN REGARDING LIFE VEST. ORDERS FAXED TO COMPANY AGAIN.
--- NOTE | 2019-04-01 11:10 | NUR ---
PATIENT REFUSING DRESSING CHANGES AT THIS TIME. WILL ATTEMPT LATER THIS AFTERNOON. DRESSINGS D/I TO BILATERAL ARMS.
--- NOTE | 2019-04-01 11:50 | NUR ---
OT NOTE Attempted to see pt this P.M. for second OT session and upon arrival pt was on a breathing treatment. Will check back at a later time/date and continue with POC as able. MARINA Tipton/Melvin
[2019-04-01 12:00] VITALS: BP 105/78
--- NOTE | 2019-04-01 12:12 | NUR ---
OT NOTE Pt was seen this P.M. 1:1 for second OT session consisting of 18 minutes. Upon arrival pt was sitting upright in the recliner. Pt identified by name and . Pt presented to therapy with continuous 2L-O2 via NC which he reamined on throughout the entire session. Pt's resting SpO2 was 95%. Pt completed BUE towel exercises over all planes of motion for 1 X 10 to increase UE strength needed for increased I in self care tasks and functional transfers. Pt required constant verbal prompts throughout for keeping his eyes open and staying awake. Pt completed sit to stand from chair level with Thomas and use of w/w for UE support. Stand pivot then completed from the chair to the EOB with Thomas and use of w/w. There he transferred sit to supine with Thomas. Pt was left supine in bed with call light in hand, tray table in place, and bed alarm activated for safety. Continue with rec D/C plan to SNF. MARINA Tipton/Melvin
--- NOTE | 2019-04-01 12:13 | NUR ---
Updated clinicals and therapy notes faxed to [facility] for precert, still waiting for auth.
[2019-04-01 16:00] VITALS: BP 102/76
--- NOTE | 2019-04-01 16:00 | NUR ---
REP FROM [employer] CALLED. REP STATED THEY STILL HAVEN'T RECEIVED AN ORDER. REP SAYS HE WILL GET IN TOUCH LATER AND BELIEVES ITS THEIR FAX THAT ISN'T WORKING PROPERLY. WILL PASS ON TO ONCOMING NURSE.
--- NOTE | 2019-04-01 16:34 | NUR ---
PATIENT STILL REFUSING DRESSING CHANGES AT THIS TIME.
[2019-04-01 19:21] VITALS: BP 90/66
--- NOTE | 2019-04-01 19:21 | NUR ---
NOTIFIED REGARDING PT C/O DIZZINESS. BP 90/66. 02 IN USE VIA 2LNC. WILL CONTINUE TO MONITOR. BED ALARM MAINTAINED FOR SAFETY.
--- NOTE | 2019-04-01 19:31 | NUR ---
PATIENT STATES THAT HIS DIZZYNESS IS PASSING. HE STATED THAT IT ONLY LASTED FOR A LITTLE BIT. IN TO ASSESS PATIENT. PATIENT ON 2L NC. DENIES CP OR SHORTNESS OF BREATH AT THIS TIME. TRACE BLE EDEMA WITH TUBIGRIPS INTACT. PATIENT STATES HIS LEGS FEEL MUCH BETTER THAN WHEN HE GOT TO THE HOSPITAL. NORMOACTIVE BOWELS X4 QUADS, DENIES N/V/D. STATES HE MOVED HIS BOWELS THIS MORNING. DIMINISHED LUNGS T/O. CALL LIGHT WITHIN REACH, WILL MONITOR
[2019-04-01 20:00] VITALS: BP 94/60
--- NOTE | 2019-04-01 20:31 | NUR ---
PRN ZOFRAN GIVEN FOR PT COMPLAINTS OFNAUSEA. CALL LIGHT WITHIN REACH, WILL MONITOR
--- NOTE | 2019-04-01 21:00 | NUR ---
PRN ZOFRAN EFFECTIVE PER PT
[2019-04-02] VITALS: BP 95/70
--- NOTE | 2019-04-02 00:08 | NUR ---
PATIENT MEDICATED WITH RESTORIL FOR C/O INSOMNIA. WILL MONITOR.
--- NOTE | 2019-04-02 01:57 | NUR ---
PRN RESTORIL GIVEN FOR PT COMPLAINTS OF SLEEPLESSNESS. CALL LIGHT WITHIN REACH, WILL MONITOR
--- NOTE | 2019-04-02 03:23 | NUR ---
PT SLEEPING. EARLIER RESTOTIL APPERAS EFEFCTIVE, CALL LIGHT WITHIN REACH, BIRDIE MONITOR
--- NOTE | 2019-04-02 03:32 | NUR ---
24 HR chart check completed.
[2019-04-02 07:01] LABS: CREATININE 1.76 mg/dL (0.70-1.30); POTASSIUM 4.7 mmol/L (3.5-5.1)
[2019-04-02 08:00] VITALS: BP 100/64
--- NOTE | 2019-04-02 08:41 | NUR ---
PHYSICAL THERAPY Patient wants therapy to come back in about half an hour so he can sleep longer. Will check back later. CHARU DUCKWORTH SOFT WORK WRAPPER LAYER AND EXAMINER
--- NOTE | 2019-04-02 09:15 | NUR ---
OT NOTE Pt was seen this A.M. 1:1 for 15 minute OT session. Upon arrival pt was supine in bed. Pt identified by name and and had no complaints at this time time. Pt presented to therapy with continuous 2L-O2 via NC which he remained on throughout entire session. At rest pt's heart rate was 59 bpm and SpO2 was 96%. Pt transferred supine to sit EOB with SBA. While sitting EOB challenged pt's dynamic sitting balance needed for increased I and enhanced safety. Pt was able to maintain F- sitting balance throughout. Pt completed multiple sit to stand transfers from bed level with Thomas and use of w/w for UE support. Challenged pt's static standing tolerance needed for increased I in self care tasks and functional transfers, pt was able to tolerate aprox 2 minutes at a time before sitting due to fatigue. Functional mobility completed to the bathroom and back with CGA and use of w/w with constant verbal prompts to slow down due to being impulsive and increasing risk of falls. Upon inital rise of each stand pt's SpO2 dropped to 83% and within seconds raised to 93%. Functional mobility then completed to the recliner where he was left sitting upright with call light in hand, tray table in place, and body alarm activated for safety. Continue with rec D/C plan to SNF. MALIK Tipton
--- NOTE | 2019-04-02 09:41 | NUR ---
PHYSICAL THERAPY Patient presented to therapy in supine in bed wit hhead of bed elevated and 2 liters of spO2 VIA NASAL CANULA. Patient was identifed by name and on wristband. Patient gives informed consent for treatment. Patient performed supine to sitting transfer to EOB with SBA. Patient sat on EOB unassisted but he did have complaint of some dizziness. Patient sit to stand from EOB with CGA X 1. Patient stood 2 minutes at Walker with minor dizziness and CGA X 2. Patient sat on EOB with CGA. Patient's O2 SAT was measured at 83% and it quickly climbed ot 97% within 30 seconds and his pulse was at 62. Patient performed gait with Walker for 3ft. x 3 AND THEN BACKED UP TO BED 3 FT. each time with CGA X 2. Patient sit to stand from EOB again with CGA. Patient ambulated around bed with Walker for 15' x 1 with CGA X 1 and no LOB or other difficulty. Patient was verbal cues for upright posture, locking knees into extension, and pushing down on walker with his hands. Patient transferred to bedside chair with CGA X 1. Patient was left in bedside chair with call light within reach and chair alarm tested and attached to patient. Patient was 1:1 with this EYEGLASS LENS GENERATOR for 25 minutes total. CHARU DUCKWORTH EYEGLASS LENS GENERATOR
--- NOTE | 2019-04-02 10:45 | NUR ---
Josh from [employer] currently in the patient's room fitting him for his life vest.
--- NOTE | 2019-04-02 10:50 | NUR ---
Advisor Advocate Angel Co Founder in to see patient. He is refusing to go to [facility] at this time. He wishes to go home with home health care services. When provided with a list of agencies he chose [facility]. Spoke to patient's girlfriend, Bridgette, at [phone] regarding patient now refusing to go to [facility]. She will try to talk to patient. If patient is discharged to home girlfriend states he will need a hospital bed and a wheelchair. Hospitalist nurse director and physician notified.
[2019-04-02 12:00] VITALS: BP 112/82
--- NOTE | 2019-04-02 14:17 | NUR ---
Faxed hospital bed and wheelchair prescriptions to [facility]. Awaiting response.
--- NOTE | 2019-04-02 14:40 | NUR ---
Spoke to Heather at [facility] regarding hospital bed and wheelchair. She states [employer] requires an auth and she would call [employer] and let know when they would be able to deliver. Hospitalist nurse director notified.
[2019-04-02] MEDS ORDERED: BUMETANIDE2 MG PO (14:47)
[2019-04-02] MEDS ORDERED: CARVEDILOL3.125 MG PO (14:47)
--- NOTE | 2019-04-02 15:15 | NUR ---
Spoke to girlfriend, Bridgette, at [phone] regarding discharge planning. She did talk to patient regarding short term SNF and he continues to refuse and wants to go home. Explained waiting on [facility] to give authorization for the hospital bed and wheelchair. She will be in later today about 5:30 - 5:45 pm. Notified patient and he is agreeable to wait until tomorrow when his hospital bed and wheelchair can be delivered. Nurse, steward/stewardess tourist class, and hospitalist nurse director notified.
[2019-04-02 16:00] VITALS: BP 120/66; BP 125/68
[2019-04-02 20:00] VITALS: BP 109/69
[2019-04-03] VITALS: BP 88/62
--- NOTE | 2019-04-03 01:08 | NUR ---
RESTORIL APPEARS EFFECTIVE. RESTING IN BED, EYES CLOSED. CALL LIGHT WITHIN REACH.
[2019-04-03 03:30] VITALS: BP 114/78
[2019-04-03 08:00] VITALS: BP 108/81
--- NOTE | 2019-04-03 08:16 | NUR ---
OT NOTE Pt was seen this A.M. 1:1 for 16 minute OT session. Upon arrival pt was supine in bed. Pt identified by name and and had no complaints at this time. Pt presented to therapy with continuous 2L-O2 via NC which he remained on throughout entire session and life vest in place. Pt transferred supine to sit EOB with Thomas. Sit to stand completed from bed level with CGA and use of w/w for UE support. Functional mobility then completed into the bathroom with CGA and use of w/w, pt required constant verbal prompts for walker safety due to being impulsive and poor safety awareness. Pt transferred on/off standard commode with Thomas and use grab bar for UE support. Functional mobility then completed back to the recliner with CGA where he was left with call light in hand, tray table in place, and body alarm activated for safety. Continue with rec D/C plan to SNF. MALIK Tipton
--- NOTE | 2019-04-03 08:45 | NUR ---
PHYSICAL THERAPY Patient seen this am 1:1 for therapy visit and was supine in bed upon therapist arrival. Patient identified by name / and presented with continuos O2-2L via NC. Patient transfers supine to sit EOB with MIN A and ambulates with wh walker, CGA, 15'x 1 to bathroom then additional 25' x 1 to bedside chair. Patient demonstrates bouts of unsteady gait pattern, decreased stride and needed v/c to improve walker safety / navigation, especially while turning in tight bathroom spaces. Patient remained in bedside chair with call light, tray table, telephone and body alarm for safety. Will continue per POC as tolerated, total treatment time 16 minutes. Jarod Reilly, JOY OPERATOR HELPER
--- NOTE | 2019-04-03 11:19 | NUR ---
Spoke to Heather Schwab at [facility]. No authorization from [facility] has been received yet. She will call once she receives the authorization.
[2019-04-03 12:00] VITALS: BP 101/69
--- NOTE | 2019-04-03 12:06 | NUR ---
Faxed home health order to [facility]
--- NOTE | 2019-04-03 13:17 | NUR ---
OT CO-SIGN I APPROVE OF THE NOTES WRITTEN ABOVE. THANK YOU. STEFFEN CHRISTIE, OTR/L
--- NOTE | 2019-04-03 14:18 | NUR ---
PHYSICAL THERAPY CO-SIGN I approve of the Physical Therapy notes written above. MUNDO DU PT,DPT
--- NOTE | 2019-04-03 15:17 | NUR ---
Spoke to Dr. Gutierrez regarding discharging patient today. Explained DME company is still waiting for insurance company to give authorization for patient's wheelchair and hospital bed. He relayed the information to team Brayan. It is ok to discharge the patient today. Nurse notified. Spoke to girlfriend, Bridgette, regarding patient being discharged today and waiting for his insurance to give authorization for the hospital bed and wheelchair. She states she has a lift chair which he can sleep in as he was sleeping in it previous to coming to the hospital and she has a walker he can use. Spoke to the Slime in the resident clinic regarding a follow up appt. Follow-up appt for April 09 at 0930. Nurse notified. Spoke to Dr. Schmidt. Ok to discharge patient.
--- NOTE | 2019-04-03 15:59 | NUR ---
Spoke to Heather Schwab at [facility] regarding home equipment. The insurance denied authorization as there is an open case with a SNF. Until the open case with the SNF is cancelled he will not be approved. After the SNF is cancelled she can resubmit for authorization per the insurance company.
[2019-04-03 16:00] VITALS: BP 102/73
--- NOTE | 2019-04-03 16:09 | NUR ---
THIS PATIENT REFUSED TO HAVE WOUND PHOTOS. AWAITING HIS TRANSPORTATION
--- NOTE | 2019-04-03 17:41 | NUR ---
STILL AWAITING GIRLFREIND TO PICK THIS PATIENT UP. I.J CATHETER REMOVED AT THIS TIME NO PROBLEMS NOTED
--- NOTE | 2019-04-03 18:18 | NUR ---
DISCHARGED AT THIS TIME WITH HIS ASSISTANT PROFESSOR OF ART IN A WHEEL CHAIR ALL INSTRUCTIONS GIVEN TO THE BOTH OF THEM. LIFE VEST INSTRUCTIONS GIVEN TO THEM THEY STATED THEY UNDERSTOOF THE INSTRUCTIONS.
--- NOTE | 2019-04-06 09:20 | NUR ---
OCCUPATIONAL THERAPY CO-SIGN I approve of the Occupational Therapy notes written above. MURPHY MARTINEZ OTR/Melvin
--- NOTE | 2019-04-07 11:12 | NUR ---
Spoke to Heather Schwab at [facility] regarding hospital bed and wheelchair. She is going to put in for auth again with [facility] and will let know if any issues arise. Spoke to girlfriend, Bridgette, at [phone] regarding above. Bridgette would like to see about getting patient a rn case management. storage worker notified.
--- NOTE | 2019-04-07 11:30 | NUR ---
JUS reached out to the patients girlfriend Bridgette [phone] about getting the patient a Cpc through [facility]. JUS provided her with the number for [facility]. -JUS Crow
== END 2019-04-03 18:18 | disposition home or self-care (01) | DRG 720 ==
LOC: ED 17:13 → 5E 18:40 → 4E 18:40 → EDHOLD 18:40 → ICCU 18:40 → 5E 18:53 → ICCU 03-24 03:54 → 4E 03-29 14:17
PROVIDERS: Emergency Medicine; Family Medicine; Hospitalist; Internal Medicine; Internal Medicine Cardiovascular Disease; Internal Medicine Critical Care Medicine; ADMIT Internal Medicine
PROC: 5A09357 Assistance with Respiratory Ventilation, Less than 24 Consecutive Hours, Continuous Positive Airway Pressure (ICD-10-PCS; 2019-03-23)
PROC: 5A09357 Assistance with Respiratory Ventilation, Less than 24 Consecutive Hours, Continuous Positive Airway Pressure (ICD-10-PCS; 2019-03-25)
PROC: 02HV33Z Insertion of Infusion Device into Superior Vena Cava, Percutaneous Approach (ICD-10-PCS; principal; 2019-03-26)
PROC: B548ZZA Ultrasonography of Superior Vena Cava, Guidance (ICD-10-PCS; 2019-03-26)
DX: A41.9 Sepsis, unspecified organism (principal); I13.0 Hypertensive heart and chronic kidney disease with heart failure and stage 1 through stage 4 chronic kidney disease, or unspecified chronic kidney disease; N17.0 Acute kidney failure with tubular necrosis; J96.01 Acute respiratory failure with hypoxia; I50.23 Acute on chronic systolic (congestive) heart failure; E44.0 Moderate protein-calorie malnutrition; L03.116 Cellulitis of left lower limb; L03.115 Cellulitis of right lower limb; I24.8 Other forms of acute ischemic heart disease; E87.3 Alkalosis; Z68.42 Body mass index [BMI] 45.0-49.9, adult; E87.6 Hypokalemia; I25.10 Atherosclerotic heart disease of native coronary artery without angina pectoris; E66.9 Obesity, unspecified; D75.1 Secondary polycythemia; I50.82 Biventricular heart failure; D64.9 Anemia, unspecified; E78.5 Hyperlipidemia, unspecified; E80.6 Other disorders of bilirubin metabolism; F17.210 Nicotine dependence, cigarettes, uncomplicated; N18.9 Chronic kidney disease, unspecified; R74.0 Nonspecific elevation of levels of transaminase and lactic acid dehydrogenase [LDH]; I25.5 Ischemic cardiomyopathy; I44.7 Left bundle-branch block, unspecified; J44.9 Chronic obstructive pulmonary disease, unspecified; R74.8 Abnormal levels of other serum enzymes; I25.2 Old myocardial infarction; Z88.5 Allergy status to narcotic agent; Z95.1 Presence of aortocoronary bypass graft; Z82.49 Family history of ischemic heart disease and other diseases of the circulatory system; Z91.19 Patient's noncompliance with other medical treatment and regimen

== ENCOUNTER → 2019-04-20 | Outpatient (CLI) | payer OTHER ==
[~2019-04-20] MED LIST changes: +BUMETANIDE2 MG PO; +CARVEDILOL3.125 MG PO
== END | disposition home or self-care (01) ==
LOC: RESCLI 00:52
DX: N39.0 Urinary tract infection, site not specified (principal); I13.0 Hypertensive heart and chronic kidney disease with heart failure and stage 1 through stage 4 chronic kidney disease, or unspecified chronic kidney disease; I50.84 End stage heart failure; N18.3 Chronic kidney disease, stage 3 (moderate); K21.9 Gastro-esophageal reflux disease without esophagitis; I71.4 Abdominal aortic aneurysm, without rupture; E55.9 Vitamin D deficiency, unspecified; I25.10 Atherosclerotic heart disease of native coronary artery without angina pectoris; J44.9 Chronic obstructive pulmonary disease, unspecified; F17.200 Nicotine dependence, unspecified, uncomplicated; Z79.899 Other long term (current) drug therapy

== ENCOUNTER → 2019-05-19 | Outpatient (CLI) | payer MEDICAID ==
[2019-05-19 13:33] LABS: BILIRUBIN 1+ (NEGATIVE); BLOOD 1+ (NEGATIVE); CLARITY CLOUDY (CLEAR); COLOR YELLOW (YELLOW); GLUCOSE NEGATIVE (NEGATIVE); KETONE NEGATIVE (NEGATIVE); LEUKO ESTERASE 1+ (NEGATIVE); NITRITE NEGATIVE (NEGATIVE); SPECIFIC GRAVITY 1.025 (1.005-1.030)
[2019-05-19 13:52] LABS: BACTERIA 4+; EPITHELIAL CELLS 0-2; MUCOUS TRACE; WBC TNTC wbc/hpf (0-5)
== END | disposition home or self-care (01) ==
LOC: US 10:00 → LAB 13:12
PROVIDERS: Emergency Medicine
DX: I71.4 Abdominal aortic aneurysm, without rupture (principal); N18.3 Chronic kidney disease, stage 3 (moderate); N39.0 Urinary tract infection, site not specified

== ENCOUNTER → 2019-06-12 | Outpatient (CLI) | payer MEDICAID ==
[2019-06-12 14:14] LABS: BASO % 0.6 % (0.0-1.0); EOS # 0.1 10*3/uL (0.0-0.4); EOS % 2.6 % (1.0-4.0); HEMATOCRIT 48.4 % (42.0-52.0); HEMOGLOBIN 15.4 g/dl (14.0-18.0); LYMPH # 1.6 10*3/uL (1.3-4.4); LYMPH % 29.7 % (27.0-41.0); MEAN CORPUSCULAR HGB 28.9 pg (27.0-31.0); MEAN CORPUSCULAR HGB CONC 31.8 g/dl (33.0-37.0); MEAN PLATELET VOLUME 9.5 fl (9.6-12.3); MONO # 0.9 10*3/uL (0.1-1.0); MONO % 15.7 % (3.0-9.0); NEUT # 2.8 10*3/uL (2.3-7.9); NEUT % 51.2 % (47.0-73.0); PLATELET COUNT AUTOMATED 152 10*3/uL (130-400); RED BLOOD COUNT 5.32 10*6/uL (4.50-5.90); RED CELL DISTRI WIDTH 15.5 % (0-14.5); WHITE BLOOD COUNT 5.4 10*3/uL (4.8-10.8)
[2019-06-12 14:29] LABS: ALKALINE PHOSPHATASE 182 U/L (45-117); BUN 9 mg/dl (7-24); CHLORIDE 103 mmol/L (98-107); SGOT/AST 31 IU/L (3-35); SGPT/ALT 14 U/L (12-78); SODIUM 139 mmol/L (136-145); TOTAL PROTEIN 6.4 gm/dL (6.4-8.2)
== END | disposition home or self-care (01) ==
LOC: RESCLI 06-11 07:43
PROVIDERS: Internal Medicine
DX: I13.0 Hypertensive heart and chronic kidney disease with heart failure and stage 1 through stage 4 chronic kidney disease, or unspecified chronic kidney disease (principal); N18.3 Chronic kidney disease, stage 3 (moderate); I50.84 End stage heart failure; K21.9 Gastro-esophageal reflux disease without esophagitis; E55.9 Vitamin D deficiency, unspecified; I25.10 Atherosclerotic heart disease of native coronary artery without angina pectoris; J44.9 Chronic obstructive pulmonary disease, unspecified; F17.200 Nicotine dependence, unspecified, uncomplicated; Z79.899 Other long term (current) drug therapy; Z88.8 Allergy status to other drugs, medicaments and biological substances